=== PATIENT | male | born 1980 | race Two or more races ===

== ENCOUNTER 2023-05-22 15:09 | Inpatient (IN) | payer OTHER ==
[2023-05-22 16:42] VITALS: BMI 26.6
[2023-05-22] MEDS ORDERED: P-EPHED 60MG/TRIPROLIDI 2.5MG TABLET PO PRN (17:12)
[2023-05-22] MEDS ORDERED: DOCUSATE SODIUM 100 MG CAPSULE (FP) PO PRN (17:12)
[2023-05-22] MEDS ORDERED: BENZOCAINE/MENTHOL (CHLORASEPTIC ) LOZENGE MM PRN (17:12)
[2023-05-22] MEDS ORDERED: BENZONATATE 200 MG CAPSULE PO PRN (17:12)
[2023-05-22] MEDS ORDERED: LOPERAMIDE HCL 2 MG CAPSULE PO PRN (17:12)
[2023-05-22] MEDS ORDERED: MAG HYDROX/AL HYDROX/SIMETH 30 ML UNIT-DOSE CUP PO PRN (17:12)
[2023-05-22] MEDS ORDERED: NALOXONE HCL 0.4 MG/ML VIAL IM PRN (17:12)
[2023-05-22] MEDS ORDERED: NALOXONE HCL (KLOXXADO) 8 MG SPRAY NS PRN (17:12)
[2023-05-22] MEDS ORDERED: POLYETHYLENE GLYCOL (HEALTHYLAX) 3350 17 GM PACKET PO PRN (17:12)
[2023-05-22] MEDS ORDERED: MAGNESIUM HYDROX 2400MG/30ML ORAL SUSPENSION 30 ML CUP PO PRN (17:12)
[2023-05-22] MEDS ORDERED: guaiFENesin 600 MG TABLET.ER (FP) PO PRN (17:12)
[2023-05-22] MEDS: IBUPROFEN 600 MG TABLET (FP) PO PRN (19:35)
[2023-05-22] MEDS ORDERED: TUBERCULIN PPD 5 TU/0.1ML SYRINGE (IN PATIENT USE ONLY) ID ONE (21:13)
[2023-05-22] MEDS: LIDOCAINE PATCH REMOVAL MC SCH (21:53)
[2023-05-22] MEDS ORDERED: PATIENT'S OWN MEDICATION (NON-FORMULARY) (Gabapentin [Gralise] 900 MG Tab.Er.24h) PO SCH (22:00)
[2023-05-22] MEDS: CYCLOBENZAPRINE HCL 10 MG TABLET (FP) PO SCH (22:43)
[2023-05-22] MEDS: SENNOSIDES 8.6MG TABLET (FP) PO SCH (22:43)
[2023-05-22] MEDS: GABAPENTIN 300 MG CAPSULE PO SCH (22:43)
[2023-05-22] MEDS: MELATONIN 5 MG TABLETS PO SCH (22:44)
[2023-05-22] MEDS: POLYETHYLENE GLYCOL (HEALTHYLAX) 3350 17 GM PACKET PO SCH (22:44)
[2023-05-22] MEDS: BUPRENORPHINE/NALOXONE 2 MG/0.5 MG FILM PACKET SL SCH (22:47)
[2023-05-22] MEDS: THIAMINE HCL 100 MG TABLET (FP) PO SCH (22:50)
[2023-05-23] MEDS: SEVELAMER CARBONATE 800 MG TAB (FP) PO SCH ×2 (06:14→08:55)
[2023-05-23] MEDS: LIDOCAINE 5% TOPICAL PATCH TP SCH (10:11)
[2023-05-23] MEDS: PRENATAL VITAMINS W/ FOLIC ACID TABLET (FP) PO SCH (10:12)
[2023-05-23] MEDS: TUBERCULIN PPD 5 TU/0.1ML SYRINGE (IN PATIENT USE ONLY) ID ONE (10:15)
[2023-05-23] MEDS: CITALOPRAM HYDROBROMIDE 20 MG TABLET PO SCH (12:50)
[2023-05-23] MEDS: MIRTAZAPINE 15 MG TABLET (FP) PO SCH (21:24)
[2023-05-24] MEDS: BUPRENORPHINE/NALOXONE 12 MG-3 MG SL FILM PACKET SL SCH (09:38)
[2023-05-24 10:39] LABS: PH,URINE 5.5 (5.0-8.0); URINE APPEARANCE CLEAR; URINE BILIRUBIN NEGATIVE (NEGATIVE); URINE COLOR YELLOW; URINE GLUCOSE (UA) NEGATIVE (NEGATIVE); URINE KETONE NEGATIVE (NEGATIVE); URINE LEUK ESTERASE NEGATIVE (NEGATIVE); URINE NITRITE NEGATIVE (NEGATIVE); URINE PROTEIN NEGATIVE (NEGATIVE); URINE UROBILINOGEN 0.2 mg/dL (0.2-1.0)
[2023-05-24] MEDS: BACLOFEN 10 MG TABLET (FP) PO PRN (21:15)
[2023-05-24] MEDS: BUPRENORPHINE/NALOXONE 2 MG/0.5 MG FILM PACKET SL SCH (21:16)
[2023-05-25 11:00] LABS: POTASSIUM 4.2 mmol/L (3.5-5.1)
[2023-05-25 11:01] LABS: BASO % 0.4 % (0-2.0); EOS % 1.6 % (0-4.5); HEMATOCRIT 30.5 % (35.4-49); HEMOGLOBIN 9.8 GM/dL (11.7-16.9); MCHC 32.1 g/dl (32.0-35.9); MEAN CELL VOLUME 77.7 fl (80-96); MEAN PLT VOLUME 6.2 fl (7.5-11.1); MONO % 11.5 % (3.8-10.2); NEUT % 67.5 % (42.8-82.8); PLATELET COUNT 455 10^3/uL (134-434); RBC 3.93 M/mm3 (4.00-5.60); RDW 21.9 % (11.9-15.9); WHITE BLOOD COUNT 6.4 K/mm3 (4.0-10.0)
[2023-05-25 11:08] LABS: ALBUMIN 3.4 g/dl (3.4-5.0); CALCIUM 9.6 mg/dL (8.5-10.1)
[2023-05-25 11:10] LABS: BLOOD UREA NITROGEN 16.6 mg/dL (7-18)
[2023-05-25 11:11] LABS: CREATININE 0.9 mg/dL (0.55-1.3)
[2023-05-25 11:12] LABS: PHOSPHOROUS 5.3 mg/dL (2.5-4.9)
[2023-05-25 11:13] LABS: BILIRUBIN,TOTAL 0.7 mg/dL (0.2-1); TOT PROT 7.8 g/dl (6.4-8.2)
[2023-05-25 11:24] LABS: ANISOCYTOSIS 2+; MACROCYTOSIS 0
[2023-05-25] MEDS: FUROSEMIDE 20 MG TABLET (FP) PO SCH (16:55)
[2023-05-26] MEDS: FERROUS SO4 325 MG TABLET (FP) PO SCH (10:53)
[2023-05-26] MEDS: IBUPROFEN 400 MG TABLET (FP) PO PRN (17:41)
[2023-06-03] MEDS: ACETAMINOPHEN 325 MG TABLET (FP) PO PRN (06:43)
[2023-06-07] MEDS: METHYL SALICYLATE/MENTHOL OINT 30 GM TUBE TP SCH (21:27)
[2023-06-20 07:35] VITALS: TEMP 98.4
[2023-06-20 09:11] VITALS: BP 106/68; PULSE 66; RESP 16
[2023-06-20] MEDS ORDERED: FLU VACCINE (FLULAVAL) PF 60 MCG/0.5 ML SYRINGE 2023-2024 IM ONE (12:00)
== END 2023-06-20 09:53 | disposition home or self-care (01) | DRG 772 ==
LOC: YASAS 15:09 → Y3NR 19:11 → Y3W 05-23 11:03 → Y3NR 06-19 01:00 → Y3W 06-19 01:50
PROVIDERS: ADMIT Allergy & Immunology; ATTEND Psychiatry & Neurology Pain Medicine
PROC: HZ42ZZZ Group Counseling for Substance Abuse Treatment, Cognitive-Behavioral (ICD-10-PCS; principal; 2023-05-22)
DX: F11.20 Opioid dependence, uncomplicated (principal); F33.1 Major depressive disorder, recurrent, moderate; F19.282 Other psychoactive substance dependence with psychoactive substance-induced sleep disorder; F41.9 Anxiety disorder, unspecified; D64.9 Anemia, unspecified; E83.39 Other disorders of phosphorus metabolism; R60.0 Localized edema; Z86.61 Personal history of infections of the central nervous system; Z59.00 Homelessness unspecified
CPT/HCPCS: 36415; 80053; 80305; 81003; 84100; 85025; 87635; 87811; 93005; 93010; J0475